=== PATIENT | male | born 1970 | race Caucasian/White ===

== ENCOUNTER 2020-03-17 15:32 | Outpatient (REF) | payer OTHER, SELFPAY ==
[2020-03-17 17:08] LABS: Alanine Aminotransferase 61 U/L (0-40); Albumin Level 4.9 g/dL (3.5-5.0); Alkaline Phosphatase 87 U/L (39-117); Anion Gap 16 (12-20); Aspartate Amino Transferase 30 U/L (5-37); Bilirubin Total 0.7 mg/dL (0.0-1.0); Blood Urea Nitrogen 10 mg/dL (9-16); C Reactive Protein 1.41 mg/dL (< or = 0.50); Calcium 9.6 mg/dL (8.4-10.2); Carbon Dioxide 29 mmol/L (22-29); Chloride 103 mmol/L (96-108); Estimated Glomerular Filt Rate > 60; Glucose Random 173 mg/dL (60-115); Potassium 4.5 mmol/l (3.3-5.1); Sodium 143 mmol/L (135-145); Total Protein 7.5 g/dL (6.5-8.0)
[2020-03-17 17:31] LABS: Thyroid Stimulating Hormone 0.74 uIU/mL (0.32-4.0)
[2020-03-17 17:39] LABS: Glucose Urine UA 500 MG/DL (NEG); Leukocyte Esterase Urine NEG (NEG); Nitrite Urine NEG (NEG); Specific Gravity - Urine 1.025 (1.005-1.025); Urine Blood NEG (NEG); Urine Ketones NEG (NEG); Urine Protein 2+ MG/DL (NEG-TRACE)
[2020-03-17 17:45] LABS: Appearance Urine CLEAR; Color Urine YELLOW
[2020-03-17 18:09] LABS: RBC Urine 0 /HPF (0); Squamous Epithelial Cell Urine TRACE /LPF; WBC Urine 0-2 /HPF (0-4)
[2020-03-17 18:17] LABS: Microalbum/Creatinine Ratio Ur 457.2 ug/mg cr
[2020-03-18 06:50] LABS: Estimated Average Glucose 209 mg/dL; Hemoglobin A1c % 8.9 %
== END 2020-03-17 15:33 | disposition home or self-care (01) ==
LOC: HO.LAB 15:32
PROVIDERS: PCP Internal Medicine; Visit Provider Internal Medicine
DX: E11.9 Type 2 diabetes mellitus without complications (principal); I10 Essential (primary) hypertension; I25.10 Atherosclerotic heart disease of native coronary artery without angina pectoris
CPT/HCPCS: 36415; 80053; 81001; 82043; 83036; 84443; 86140

== ENCOUNTER 2020-05-19 14:18 | Outpatient (REF) | payer OTHER, SELFPAY ==
--- NOTE | ~2020-05-19 | XR_ITS ---
EXAMINATION: BILATERAL KNEE X-RAY CLINICAL INFORMATION: Pain COMPARISON: None TECHNIQUE: 4 views of each knee FINDINGS: Bone alignment is normal. No fracture or dislocation is seen. The joint spaces are normal. There is no joint effusion. XR/XR knee LT 4V IMPRESSION: Unremarkable exam.
--- NOTE | ~2020-05-19 | XR_ITS ---
EXAMINATION: BILATERAL KNEE X-RAY CLINICAL INFORMATION: Pain COMPARISON: None TECHNIQUE: 4 views of each knee FINDINGS: Bone alignment is normal. No fracture or dislocation is seen. The joint spaces are normal. There is no joint effusion. XR/XR knee RT 4V IMPRESSION: Unremarkable exam.
--- NOTE | ~2020-05-19 | XR_ITS ---
EXAMINATION: XR SHOULDER, RIGHT CLINICAL INFORMATION: Pain. COMPARISON: None TECHNIQUE: AP external rotation, Grashey, scapular Y, and axillary views of the right shoulder. FINDINGS: Bone alignment is normal. No fracture or dislocation is seen. The glenohumeral joint is normal. There is joint space narrowing at the acromioclavicular joint. Soft tissues are unremarkable. XR/XR shoulder RT min 2V IMPRESSION: Mild degenerative changes at the acromioclavicular joint.
== END 2020-05-19 14:19 | disposition home or self-care (01) ==
LOC: HO.XRAY 14:18
PROVIDERS: PCP Internal Medicine; Visit Provider Internal Medicine
DX: M25.562 Pain in left knee (principal); M25.561 Pain in right knee; M25.511 Pain in right shoulder
CPT/HCPCS: 73030; 73564

== ENCOUNTER 2021-09-13 16:00 | Emergency (ER) | payer OTHER, SELFPAY ==
--- NOTE | ~2021-09-13 | US_ITS ---
EXAMINATION: US VENOUS ULTRASOUND WITH DOPPLER LOWER EXTREMITY, RIGHT CLINICAL INFORMATION: Right calf pain. Evaluate for DVT. COMPARISON: None TECHNIQUE: Ultrasound of the deep veins is performed from the hip to the calf with compression sonography and color and pulse Doppler assessment. Spectral analysis with color-flow imaging is performed. FINDINGS: There is normal venous compression and respiratory variation and augmented flow. The visualized common femoral vein, superficial femoral vein, profunda femoral vein, popliteal vein, and the trifurcation region shows no evidence of deep venous thrombosis. Visualized peroneal and posterior tibial veins appear patent. Targeted scanning of the posterior calf in the area of the patient's pain demonstrates no gross abnormality. US/US venous duplex LE RT IMPRESSION: No DVT demonstrated in the right lower extremity.
[2021-09-13 17:05] VITALS: BP 158/87; PULSE 81; RESP 20; TEMP 37.1; O2SAT 96; BMI 38.2
[2021-09-13 17:38] LABS: Hematocrit 46.4 % (42.0-52.0); Hemoglobin 15.4 g/dl (14.0-18.0); Mean Corpuscular HGB Conc 33.2 g/dl (31.0-36.0); Mean Corpuscular Hemoglobin 28.5 pg (27.0-33.0); Mean Corpuscular Volume 85.8 fL (80.0-98.0); Mean Platelet Volume 9.7 fL (9.4-12.4); Platelet Count 221 X10*3/uL (160-400); Red Blood Count 5.41 X10*6/uL (4.60-5.80); White Blood Count 7.7 X10*3/uL (4.8-10.8)
[2021-09-13 17:44] LABS: Anion Gap 14 (12-20); Blood Urea Nitrogen 14 mg/dL (9-16); Calcium 9.2 mg/dL (8.4-10.2); Carbon Dioxide 26 mmol/L (22-29); Chloride 102 mmol/L (96-108); Creatinine Clr Calc Pharmacy 135.2; Estimated Glomerular Filt Rate > 60; Glucose Random 204 mg/dL (60-115); Potassium 4.4 mmol/L (3.3-5.1); Sodium 138 mmol/L (135-145)
--- NOTE | 2021-09-13 18:15 | ED.EXTPRO ---
HPI - Extremity Problem General Chief complaint: Extremity Problem Stated complaint: right calf pain Time Seen by Provider: 09/13/21 17:14 Source: patient Mode of arrival: ambulatory History of Present Illness HPI Narrative: 51-year-old male with no significant past medical history presenting to the ED complaining of right thigh and calf pain since this morning. Reports step out of car and had sudden onset of pain which has been worsening throughout the day. Reports pain radiates down to foot, worse with movement and sitting. Denies known injury, trauma, fall, numbness/tingling, weakness, history of clots, recent travel, cigarette smoking, weakness, SOB Complaint: extremity pain Onset (ago): hour(s) Pain Consistency: intermittent Related Data Home Medications Medication Instructions Recorded Confirmed aspirin 81 mg tablet 81 mg PO 09/13/21 empagliflozin 25 mg tablet 25 mg PO DAILY 09/13/21 09/13/21 (Jardiance) metformin 1,000 mg tablet 1,000 mg PO BID 09/13/21 09/13/21 metoprolol succinate 50 mg capsule 50 mg 09/13/21 sprinkle, ext. release 24 hr rosuvastatin 40 mg tablet 40 mg 09/13/21 Allergies Allergy/AdvReac Type Severity Reaction Status Date / Time No Known Allergies Allergy Verified 09/13/21 18:58 Review of Systems Review of Systems: Constitutional: No Fever, No Chills, No Fatigue, No Malaise ENT/Mouth: No Ear Pain, No Nasal Congestion, No sore throat, No Rhinorrhea, No Swallowing Difficulty Eyes: No Eye Pain, No Swelling, No Redness Cardiovascular: No Chest Pain, No SOB, No Dyspnea on Exertion, No Orthopnea, No Edema, No Palpitations Respiratory: No Cough, No Sputum, No Dyspnea Gastrointestinal: No Nausea, No Vomiting, No Diarrhea, No Constipation, No Abdominal pain Genitourinary: No Dysuria, No Urinary Frequency, No Hematuria Musculoskeletal: + joint pain, No Myalgias, No Joint Swelling Skin: No Skin Lesions, No rash Neuro: No Weakness, No Numbness, No Paresthesias Yes all other systems are reviewed and are negative [facility] Past Medical History Attestation statement: The following information was validated with the patient. Social History Social History Advance Directives: No Advance Directives Information Provided: Yes Physical Exam Vital Signs: Vital Signs: Last Vital Signs Temp 98.7 F 09/13/21 17:05 Pulse 81 09/13/21 17:05 Resp 20 09/13/21 17:05 BP 158/87 H 09/13/21 17:05 Pulse Ox 96 09/13/21 17:05 O2 Del Method 09/13/21 17:05 BMI result Body Mass Index 38.2 Const: General: cooperative, healthy appearing and no acute distress Orientation/consciousness: patient oriented x3 Limitations: no limitations HEENT: Head: Yes normal to inspection and Yes atraumatic Ears: hearing grossly normal bilaterally General nose exam: Normal external nose present Face and sinus: Yes normal facial exam Eyes: General: appearance normal, both eyes and all related structures EOM: EOMs intact bilaterally Neck: Neck: Yes normal visual inspection and Yes no meningeal signs Resp: Effort & Inspection: normal respiratory effort and no respiratory distress Cardio: Rate: regular rate Heart sounds: S1 normal heart sound present and S2 normal heart sound present Peripheral pulses: dorsalis pedis present GI: Inspection: Yes normal to inspection Skin: Rashes: no rashes Wounds: no wounds Neuro: General: patient oriented x3, tone normal and no meningeal signs Gait exam (Neuro): Normal gait present Extrem: Other: Right lower extremity without appreciable swelling. + tenderness right calf with positive Homans sign. + mild tenderness to right posterior thigh. Neurovascular intact distally. No erythema. Compartments soft. General: Yes normal to inspection Course Course Course Narrative: -labs unremarkable -1939--ED care transferred to [facility] Low pending venous duplex ultrasound and dispo per results MDM - Extremity (Nontraumatic) MDM Narrative Medical decision making narrative: 51-year-old male with no significant past medical history presenting to the ED complaining of right thigh and calf pain since this morning. On exam vital signs stable, NAD/nontoxic-appearing, physical exam as above with positive Mono sign and right calf tenderness. No appreciable swelling. No evidence of infection. Compartments soft, low suspicion for compartment syndrome. Concern for DVT vs strain Plan: Labs, a venous duplex ultrasound Differential Diagnosis Differential diagnosis: Likely lower extremity edema and deep vein thrombosis of lower extremity Medical Records Attestation: I reviewed the patient's medical records. Lab Data Attestation: I reviewed the patient's lab results. Result diagrams: 09/13/21 17:25 09/13/21 17:24 Labs: Lab Results 09/13/21 09/13/21 09/13/21 Range/Units 17:24 17:25 17:25 WBC 7.7 (4.8-10.8) X10*3/uL RBC 5.41 (4.60-5.80) X10*6/uL Hgb 15.4 (14.0-18.0) g/dl Hct 46.4 (42.0-52.0) % MCV 85.8 (80.0-98.0) fL MCH 28.5 (27.0-33.0) pg MCHC 33.2 (31.0-36.0) g/dl RDW 13.0 (11.0-16.0) % Plt Count 221 (160-400) X10*3/uL MPV 9.7 (9.4-12.4) fL Absolute Nucleated RBC 0.000 (0.0-0.012) X10*3/uL Nucleated RBC % (auto) 0.0 (0.0-0.2) /100WBC Sodium 138 (135-145) mmol/L Potassium 4.4 (3.3-5.1) mmol/L Chloride 102 (96-108) mmol/L Carbon Dioxide 26 (22-29) mmol/L Anion Gap 14 (12-20) BUN 14 (9-16) mg/dL Creatinine 0.94 (0.5-1.4) mg/dL Estim Creat Clear Calc 135.2 Estimated GFR > 60 Random Glucose 204 H (60-115) mg/dL Calcium 9.2 (8.4-10.2) mg/dL Magnesium 2.1 (1.6-2.6) mg/dL B-Natriuretic Peptide < 10 (<100) pg/mL Discharge Plan Discharge Clinical Impression: Pain of right calf Patient Disposition: Still a Patient Prescriptions: No Action metformin 1,000 mg Tablet 1,000 mg PO BID aspirin 81 mg Tablet 81 mg PO rosuvastatin 40 mg Tablet 40 mg Jardiance 25 mg Tablet 25 mg PO DAILY metoprolol succinate 50 mg Capsule,Sprinkle,Er 24hr 50 mg
[2021-09-13 18:33] LABS: Magnesium 2.1 mg/dL (1.6-2.6)
[2021-09-13 18:42] LABS: B Type Natriuretic Peptide < 10 pg/mL (<100)
== END 2021-09-13 20:22 | disposition home or self-care (01) ==
PROVIDERS: Physician Assistant; Emergency Provider Student in an Organized Health Care Education/Training Program; PCP Internal Medicine
DX: M79.661 Pain in right lower leg (principal); R06.02 Shortness of breath; R60.0 Localized edema; Z79.899 Other long term (current) drug therapy; Z79.82 Long term (current) use of aspirin
CPT/HCPCS: 36415; 80048; 83735; 83880; 85027; 93971; 99282; 99284